=== PATIENT | male | born 1965 | race Caucasian/White ===

== ENCOUNTER 2018-08-22 20:07 | Observation (INO) | payer MEDICAID ==
[2018-08-22 20:09] VITALS: BMI 27.4
[2018-08-22 20:30] LABS: BASO # 0.05 K/mm3 (0.0-2.0); BASO % 1.1 % (0.0-3.0); EOS % 0.7 % (1.5-5.0); GRAN # 2.35 (1.4-6.5); GRAN % 52.7 % (50.0-68.0); HEMOGLOBIN 13.6 g/dL (14.0-18.0); LYMPH # 1.8 (1.2-3.4); LYMPH % 39.9 % (22.0-35.0); MEAN CORPUSCULAR HEMOGLOBIN 27.5 pg (25.0-35.0); MEAN CORPUSCULAR HGB CONC 33.6 g/dl (31.0-37.0); MEAN PLATELET VOLUME 9.2 fl (7.0-11.0); MONO # 0.3 (0.1-0.6); MONO % 5.6 % (1.0-6.0); RBC 4.94 10^6/uL (3.5-6.1); RED CELL DISTRIBUTION WIDTH 14.3 % (11.5-14.5); WHITE BLOOD COUNT 4.5 10^3/uL (4.5-11.0)
[2018-08-22 20:39] LABS: ALB/GLOB RATIO 1.4 (1.1-1.8); ALBUMIN 4.7 g/dL (3.0-4.8); ALT/SGPT 30 U/L (7-56); AST/SGOT 23 U/L (17-59); BLOOD UREA NITROGEN 13 mg/dL (7-21); CALCIUM 9.9 mg/dL (8.4-10.5); GFR NON-AFRICAN AMERICAN > 60; INR 1.07; PARTIAL THROMBOPLASTIN TIME 29.9 Seconds (25.1-36.5); PROTHROMBIN TIME 12.2 SECONDS (9.4-12.5)
[2018-08-22 20:40] LABS: D DIMER < 200 ng/mlDDU (0-243)
[2018-08-22 20:50] LABS: TROPONIN I < 0.01 ng/mL
--- NOTE | 2018-08-22 21:45 | ED PDOC ---
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 Patient states he has been experiencing chest pain with associated shortn ess of breath. Patient notes he recently had 2 left leg stents placed. Patient denies any fever, chills, nausea, vomiting, neck pain, headache, dizziness, or any other complaints. Symptom Onset: Gradual Symptom Course: Unchanged Activities at Onset: Light Context: Home Past Medical History - Provider Review Nursing Documentation Reviewed: Yes - Pulmonary Hx Respiratory Disorders: No - Neurological Hx Neurological Disorder: No - HEENT Hx HEENT Disorder: No - Renal Hx Renal Disorder: No - Endocrine/Metabolic Hx Endocrine Disorders: No - Hematological/Oncological Other/Comment: May Thurner syndrome stents placed two weeks ago - Integumentary Hx Dermatological Disorder: No - Musculoskeletal/Rheumatological Hx Musculoskeletal Disorders: No - Gastrointestinal Hx Gastrointestinal Disorders: No - Genitourinary/Gynecological Hx Genitourinary Disorders: No - Psychiatric Hx Psychophysiologic Disorder: No Hx Substance Use: No - Surgical History Other/Comment: stents two weeks ago Family/Social History - Physician Review Nursing Documentation Reviewed: Yes Family/Social History: Unknown Family HX Smoking Status: Never Smoked Hx Alcohol Use: No Hx Substance Use: No Allergies/Home Meds Allergies/Adverse Reactions: Allergies Iodinated Contrast- Oral and IV Dye Allergy (Verified 08/22/18 22:09) ANAPHYLAXIS Penicillins Allergy (Verified 08/22/18 20:09) RASH Home Medications: Home Meds Medication Instructions Recorded Confirmed Apixaban [Eliquis] 5 mg PO BID 08/22/18 08/23/18 Review of Systems - Physician Review All systems were reviewed & negative as marked: Yes - Review of Systems Constitutional: Normal. absent: Fevers Eyes: Normal ENT: Normal Respiratory: SOB. absent: Cough Cardiovascular: Chest Pain Gastrointestinal: Normal. absent: Abdominal Pain, Diarrhea, Nausea, Vomiting Genitourinary Male: Normal. absent: Dysuria, Frequency, Hematuria, Urinary Output Changes Musculoskeletal: Normal. absent: Back Pain, Neck Pain Skin: Normal. absent: Rash Neurological: Normal. absent: Headache, Dizziness Endocrine: Normal Hemo/Lymphatic: Normal Psychiatric: Normal Physical Exam Vital Signs Reviewed: Yes Vital Signs Temp Pulse Resp BP Pulse Ox 08/22/18 20:10 98.5 F 89 20 137/89 100 Temperature: Afebrile Blood Pressure: Normal Pulse: Regular Respiratory Rate: Normal Appearance: Positive for: Well-Appearing, Non-Toxic, Comfortable Pain Distress: None Mental Status: Positive for: Alert and Oriented X 3 - Systems Exam Head: Present: Atraumatic, Normocephalic Pupils: Present: PERRL Extroacular Muscles: Present: EOMI Conjunctiva: Present: Normal Mouth: Present: Moist Mucous Membranes Neck: Present: Normal Range of Motion. No: Meningeal Signs, MIDLINE TENDERNESS, Paraspinal Tenderness Respiratory/Chest: Present: Clear to Auscultation, Good Air Exchange. No: Respiratory Distress, Accessory Muscle Use Cardiovascular: Present: Regular Rate and Rhythm, Normal S1, S2. No: Murmurs Abdomen: No: Tenderness, Distention, Peritoneal Signs Back: Present: Normal Inspection Upper Extremity: Present: Normal Inspection. No: Cyanosis, Edema Lower Extremity: Present: Normal Inspection. No: Edema Neurological: Present: GCS=15, CN II-XII Intact, Speech Normal Skin: Present: Warm, Dry, Normal Color. No: Rashes Psychiatric: Present: Alert, Oriented x 3, Normal Insight, Normal Concentration Medical Decision Making ED Course and Treatment: 08/22/18 20:20 Impression: 53 year old male complaining of chest pain and shortness of breath, pt recently had 2 stents placed in the left leg. Plan: -- EKG -- Chest X-ray -- Labs, cardiac enzymes, D-dimer -- UA -- Reassess and disposition Progress Notes: Reviewed EKG, NSR at [address]-segment elevations or depressions, no T-wave inversions, normal intervals. 08/22/18 20:55 Chest X-ray reviewed, shows no acute processes. 08/22/18 21:30 Case discussed with certified medical aide nutrition club ambassador and house physician, who agree with plan. Pt will go to remote telemetry observation for chest pain under the hospitalist service. - Lab Interpretations Lab Results: 08/22/18 20:14 08/22/18 20:14 Lab Results 08/22/18 20:14: Sodium 142, Potassium 4.4, Chloride 104, Carbon Dioxide 26, Anion Gap 16, BUN 13, Creatinine 1.0, Est GFR ( Amer) > 60, Est GFR (Non- Af Amer) > 60, Random Glucose 123 H, Calcium 9.9, Magnesium 2.1, Total Bilirubin 0.8, AST 23, ALT 30, Alkaline Phosphatase 52, Lactate Dehydrogenase 579, Total Creatine Kinase 115, Troponin I < 0.01, Total Protein 8.0, Albumin 4.7, Globulin 3.3, Albumin/Globulin Ratio 1.4 08/22/18 20:14: PT 12.2, INR 1.07, APTT 29.9, D-Dimer, Quantitative < 200 08/22/18 20:14: WBC 4.5, RBC 4.94, Hgb 13.6 L, Hct 40.5 L, MCV 82.0, MCH 27.5, M CHC 33.6, RDW 14.3, Plt Count 288, MPV 9.2, Gran % 52.7, Lymph % (Auto) 39.9 H, [place] % (Auto) 5.6, Eos % (Auto) 0.7 L, Baso % (Auto) 1.1, Gran # 2.35, Lymph # (Auto) 1.8, [place] # (Auto) 0.3, Eos # (Auto) 0.0, Baso # (Auto) 0.05 I have reviewed the lab results: Yes - RAD Interpretation Radiology Orders: 08/22/18 20:21 CHEST PORTABLE [RAD] Stat Stencil Machine Operator: ED Physician - EKG Interpretation Interpreted by ED Physician: Yes Type: 12 lead EKG - Scribe Statement The provider has reviewed the documentation as recorded by the Yue Early Provider Scribe Attestation: All medical record entries made by the Yue were at my direction and personally dictated by me. I have reviewed the chart and agree that the record accurately reflects my personal performance of the history, physical exam, medical decision making, and the department course for this patient. I have also personally directed, reviewed, and agree with the discharge instructions and disposition. Disposition/Present on Arrival - Present on Arrival Any Indicators Present on Arrival: No History of DVT/PE: Yes History of Uncontrolled Diabetes: No Urinary Catheter: No History of Decub. Ulcer: No History Surgical Site Infection Following: None - Disposition Have Diagnosis and Disposition been Completed?: Yes Diagnosis: Chest pain Disposition: HOSPITALIZED Disposition Time: 22:00 Condition: GOOD
--- NOTE | 2018-08-22 22:35 | CP.PCM.HP ---
<Sourav Gaitan - Last Filed: 08/22/18 22:46> History of Present Illness - History of Present Illness History of Present Illness: Sourav Gaitan DO, PGY-1 Hospitalist Admission History and Physical for Dr. Albert CC: chest pain, SOB HPI: Mr. Miller is a 53 year old Occitan speaking male (history obtained/verified by Dr. 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 He describes the pain as a dull, aching type pain that is on the left side of his chest. He also has a numbness/tingling type sensation radiating down his L arm. Although he has a hx of prior DVT, he states he has never had an episode of chest pain like this in the past. He endorses BUTLER and some intermittent chills since the onset of the chest pain at 1900 but denies palpitations, diaphoresis, abdominal pain/nausea/vomiting, fever/chills, orthopnea, or PND. PMD: [place] Past Medical Hx: b/l DVT (L > R), PVD (s/p 6 stents in LE b/l), May-Thurner syndrome Past Surgical Hx: LE stents, R sided hernia repair Allergies: IV contrast, PCN Home medications: Eliquis 5 mg BID Family Hx: mother had DM2 and HTN, father had hx of orthostatic hypotension Social Hx: denies current or prior tobacco, alcohol, and drug use Pharmacy: [facility] Present on Admission - Present on Admission Any Indicators Present on Admission: Yes History of DVT/PE: Yes History of Uncontrolled Diabetes: No Urinary Catheter: No Decubitus Ulcer Present: No Review of Systems - Constitutional Constitutional: absent: Chills, Fever - EENT Eyes: absent: Blurred Vision Ears: absent: Disequilibrium, Dizziness - Cardiovascular Cardiovascular: Chest Pain, Dyspnea. absent: Diaphoresis, Irregular Heart Rhythm, Orthopnea, Palpitations, Paroxysmal Nocturnal Dyspnea, Syncope - Respiratory Respiratory: Dyspnea. absent: Cough - Gastrointestinal Gastrointestinal: absent: Abdominal Pain, Constipation, Diarrhea, Nausea, Vomiting - Genitourinary Genitourinary: absent: Change in Urinary Stream, Difficulty Urinating Past Patient History - Past Social History Smoking Status: Never Smoked - PULMONARY Hx Respiratory Disorders: No - NEUROLOGICAL Hx Neurological Disorder: No - HEENT Hx HEENT Problems: No - RENAL Hx Chronic Kidney Disease: No - ENDOCRINE/METABOLIC Hx Endocrine Disorders: No - HEMATOLOGICAL/ONCOLOGICAL Other/Comment: May Thurner syndrome stents placed two weeks ago - INTEGUMENTARY Hx Dermatological Problems: No - MUSCULOSKELETAL/RHEUMATOLOGICAL Hx Musculoskeletal Disorders: No - GASTROINTESTINAL Hx Gastrointestinal Disorders: No - GENITOURINARY/GYNECOLOGICAL Hx Genitourinary Disorders: No - PSYCHIATRIC Hx Psychophysiologic Disorder: No Hx Substance Use: No - SURGICAL HISTORY Other/Comment: stents two weeks ago Meds Allergies/Adverse Reactions: Allergies Allergy/AdvReac Type Severity Reaction Status Date / Time Iodinated Contrast- Oral and Allergy ANAPHYLAXIS Verified 08/22/18 22:09 IV Dye Penicillins Allergy RASH Verified 08/22/18 20:09 Physical Exam - Constitutional Appears: Non-toxic, No Acute Distress - Head Exam Head Exam: ATRAUMATIC, NORMOCEPHALIC - Eye Exam Eye Exam: EOMI, Normal appearance, PERRL - ENT Exam ENT Exam: Mucous Membranes Moist - Neck Exam Neck exam: Positive for: Full Rom, Normal Inspection - Respiratory Exam Respiratory Exam: Clear to Auscultation Bilateral, NORMAL BREATHING PATTERN. absent: Rales, Rhonchi, Wheezes - Cardiovascular Exam Cardiovascular Exam: REGULAR RHYTHM, RRR, +S1, +S2. absent: Diastolic murmur, Gallop, Rubs, Systolic Murmur - GI/Abdominal Exam GI & Abdominal Exam: Normal Bowel Sounds, Soft. absent: Guarding, Tenderness - Extremities Exam Extremities exam: Positive for: normal capillary refill, pedal pulses present. Negative for: calf tenderness, pedal edema Additional comments: patient wearing compression stockings - Back Exam Back exam: FULL ROM, NORMAL INSPECTION - Neurological Exam Neurological exam: Alert, Oriented x3 - Psychiatric Exam Psychiatric exam: Normal Affect, Normal Mood - Skin Skin Exam: Dry, Intact, Warm Results - Vital Signs Recent Vital Signs: Last Vital Signs Temp 98.5 F 08/22/18 20:10 Pulse 89 08/22/18 20:10 Resp 20 08/22/18 20:10 BP 137/89 08/22/18 20:10 Pulse Ox 100 08/22/18 20:10 - Labs Result Diagrams: 08/22/18 20:14 08/22/18 20:14 Labs: Laboratory Results - last 24 hr 08/22/18 08/22/18 08/22/18 20:14 20:14 20:14 WBC 4.5 RBC 4.94 Hgb 13.6 L Hct 40.5 L MCV 82.0 MCH 27.5 MCHC 33.6 RDW 14.3 Plt Count 288 MPV 9.2 Gran % 52.7 Lymph % (Auto) 39.9 H [place] % (Auto) 5.6 Eos % (Auto) 0.7 L Baso % (Auto) 1.1 Gran # 2.35 Lymph # (Auto) 1.8 [place] # (Auto) 0.3 Eos # (Auto) 0.0 Baso # (Auto) 0.05 PT 12.2 INR 1.07 APTT 29.9 D-Dimer, Quantitative < 200 Sodium 142 Potassium 4.4 Chloride 104 Carbon Dioxide 26 Anion Gap 16 BUN 13 Creatinine 1.0 Est GFR ( Amer) > 60 Est GFR (Non-Af Amer) > 60 Random Glucose 123 H Calcium 9.9 Magnesium 2.1 Total Bilirubin 0.8 AST 23 ALT 30 Alkaline Phosphatase 52 Lactate Dehydrogenase 579 Total Creatine Kinase 115 Troponin I < 0.01 Total Protein 8.0 Albumin 4.7 Globulin 3.3 Albumin/Globulin Ratio 1.4 Assessment & Plan - Assessment and Plan (Free Text) Assessment: 53 yo M with PMH of 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 Plan: 1. Chest pain/SOB May be 2/2 costochondritis vs GERD/heartburn Low suspicion for cardiac etiology or PE (D-dimer negative) Trend troponin q6h x 2 Repeat EKG in AM Will start on ASA 81 and lipitor 40 in AM F/u lipid panel, A1c, TSH in AM Topical NG PRN for any additional CP 2. Hx b/l DVT/PVD Likely 2/2 May-Thurner syndrome which patient states he has been diagnosed with Patient was wearing compression stockings on exam Advised patient that compression stockings/SCDs are typically contraindicated with active DVT Patient stated his data capture specialist told him he could wear them and states he wants to continue wearing them Continue anti-coagulation with home eliquis dose 3. BUTLER Most likely tension BUTLER Tylenol PRN Consider CT head if not improving 4. Hx HLD Patient admits to a history of high cholesterol but states he does not take any medicines for it Will start on lipitor 40 in AM F/u lipid panel results in AM DVT/GI PPX: home eliquis, protonix Full Code HHD Monitor on telemetry Case and plan reviewed and discussed with my attending Dr. Bety Gaitan, DO IM Resident PGY-1 <Zoila Albert - Last Filed: 08/23/18 02:49> Results - Vital Signs Recent Vital Signs: Last Vital Signs Temp 98.0 F 08/22/18 23:36 Pulse 77 08/22/18 23:37 Resp 20 08/22/18 23:36 BP 124/74 08/22/18 23:36 Pulse Ox 97 08/22/18 23:36 - Labs Result Diagrams: 08/22/18 20:14 08/22/18 20:14 Labs: Laboratory Results - last 24 hr 08/22/18 08/22/18 08/22/18 20:14 20:14 20:14 WBC 4.5 RBC 4.94 Hgb 13.6 L Hct 40.5 L MCV 82.0 MCH 27.5 MCHC 33.6 RDW 14.3 Plt Count 288 MPV 9.2 Gran % 52.7 Lymph % (Auto) 39.9 [place] % (Auto) 5.6 Eos % (Auto) 0.7 L Baso % (Auto) 1.1 Gran # 2.35 Lymph # (Auto) 1.8 [place] # (Auto) 0.3 Eos # (Auto) 0.0 Baso # (Auto) 0.05 PT 12.2 INR 1.07 APTT 29.9 D-Dimer, Quantitative < 200 Sodium 142 Potassium 4.4 Chloride 104 Carbon Dioxide 26 Anion Gap 16 BUN 13 Creatinine 1.0 Est GFR ( Amer) > 60 Est GFR (Non-Af Amer) > 60 Random Glucose 123 H Calcium 9.9 Magnesium 2.1 Total Bilirubin 0.8 AST 23 ALT 30 Alkaline Phosphatase 52 Lactate Dehydrogenase 579 Total Creatine Kinase 115 Troponin I < 0.01 Total Protein 8.0 Albumin 4.7 Globulin 3.3 Albumin/Globulin Ratio 1.4 Attending/Attestation - Attestation I have personally seen and examined this patient.: Yes I have fully participated in the care of the patient.: Yes I have reviewed all pertinent clinical information: Yes Notes (Text): 08/23/18 02:48 Chnge topical NTG to SL NTG. Pt. had recent echo at [facility]. Copied and put in chart.
[2018-08-22] MEDS ORDERED: Nitroglycerin 2% Ointment Foilpak UD TOP PRN (22:42)
[2018-08-22 23:44] VITALS: RESP 20
[2018-08-22] MEDS ORDERED: Pneumococcal 23-Valent Vaccine IM ONE (23:44)
[2018-08-22] MEDS ORDERED: Influenza Vaccine 60 mcg/0.5 mL SYR (4YR UP) IM ONE (23:44)
[2018-08-23] MEDS ORDERED: Pantoprazole 40 mg EC Tab PO SCH (06:00)
[2018-08-23 06:48] LABS: URINE BILIRUBIN NEGATIVE (NEGATIVE); URINE BLOOD NEGATIVE (NEGATIVE); URINE GLUCOSE (UA) NEGATIVE (NEGATIVE); URINE LEUKOCYTE ESTERASE NEGATIVE Leu/uL (NEGATIVE); URINE PROTEIN NEGATIVE mg/dL (<30 mg/dL); URINE UROBILINOGEN 0.2 E.U./dL (<1 E.U./dL)
[2018-08-23 06:53] VITALS: BP 109/68; TEMP 97.7; O2SAT 99
[2018-08-23 06:54] LABS: URINE APPEARANCE CLEAR (CLEAR); URINE COLOR YELLOW (YELLOW)
[2018-08-23 07:04] LABS: BASO # 0.03 K/mm3 (0.0-2.0); BASO % 0.7 % (0.0-3.0); EOS # 0.1 (0.0-0.7); EOS % 2.5 % (1.5-5.0); GRAN # 2.18 (1.4-6.5); GRAN % 49.6 % (50.0-68.0); HEMOGLOBIN 12.7 g/dL (14.0-18.0); LYMPH # 1.7 (1.2-3.4); MEAN CELL VOLUME 82.3 fl (80.0-105.0); MEAN CORPUSCULAR HEMOGLOBIN 26.8 pg (25.0-35.0); MEAN CORPUSCULAR HGB CONC 32.6 g/dl (31.0-37.0); MEAN PLATELET VOLUME 9.7 fl (7.0-11.0); MONO # 0.4 (0.1-0.6); MONO % 8.2 % (1.0-6.0); RBC 4.74 10^6/uL (3.5-6.1); RED CELL DISTRIBUTION WIDTH 14.4 % (11.5-14.5); WHITE BLOOD COUNT 4.4 10^3/uL (4.5-11.0)
[2018-08-23 07:13] LABS: ALB/GLOB RATIO 1.3 (1.1-1.8); ALBUMIN 3.9 g/dL (3.0-4.8); ALT/SGPT 35 U/L (7-56); AST/SGOT 25 U/L (17-59); BLOOD UREA NITROGEN 14 mg/dL (7-21); CALCIUM 9.3 mg/dL (8.4-10.5); GFR NON-AFRICAN AMERICAN > 60; HDL CHOLESTEROL 35 mg/dL (29-60)
[2018-08-23 07:23] LABS: LDL CHOLESTEROL 118 mg/dL (0-129)
--- NOTE | 2018-08-23 09:18 | RAD ---
Date of service: 08/22/2018 HISTORY: cp COMPARISON: No prior. FINDINGS: LUNGS: No active pulmonary disease. PLEURA: No significant pleural effusion identified, no pneumothorax apparent. CARDIOVASCULAR: No aortic atherosclerotic calcification present. Normal cardiac size. No pulmonary vascular congestion. OSSEOUS STRUCTURES: No significant abnormalities. VISUALIZED UPPER ABDOMEN: Normal. OTHER FINDINGS: None. IMPRESSION: No active disease.
--- NOTE | 2018-08-23 13:44 | CARD ---
APPROVED REPORT Date of service: 08/23/2018 EKG Measurement Heart [id number] <Conclusion> Normal sinus rhythm Normal ECG
[2018-08-23 14:20] VITALS: PULSE 93
--- NOTE | 2018-08-23 15:13 | CARD ---
APPROVED REPORT Date of service: 08/22/2018 EKG Measurement Heart [id number] <Conclusion> Normal sinus rhythm Normal ECG
--- NOTE | 2018-08-23 15:53 | CP.PCM.DIS ---
<Humble Gonzalez - Last Filed: 08/23/18 15:30> Provider - Provider Date of Admission: 08/22/18 21:30 Attending physician: Tsering Conrad DO Primary care physician: Mary Jane Samson MD Time Spent in preparation of Discharge (in minutes): 45 Diagnosis - Discharge Diagnosis (1) Chest pain Status: Acute Hospital Course - Lab Results Lab Results: Most Recent Lab Values WBC 4.4 10^3/uL (4.5-11.0) L 08/23/18 06:15 RBC 4.74 10^6/uL (3.5-6.1) 08/23/18 06:15 Hgb 12.7 g/dL (14.0-18.0) L 08/23/18 06:15 Hct 39.0 % (42.0-52.0) L 08/23/18 06:15 MCV 82.3 fl (80.0-105.0) 08/23/18 06:15 MCH 26.8 pg (25.0-35.0) 08/23/18 06:15 MCHC 32.6 g/dl (31.0-37.0) 08/23/18 06:15 RDW 14.4 % (11.5-14.5) 08/23/18 06:15 Plt Count 244 10^3/uL (120.0-450.0) 08/23/18 06:15 MPV 9.7 fl (7.0-11.0) 08/23/18 06:15 Gran % 49.6 % (50.0-68.0) L 08/23/18 06:15 Lymph % (Auto) 39.0 % (22.0-35.0) H 08/23/18 06:15 [place] % (Auto) 8.2 % (1.0-6.0) H 08/23/18 06:15 Eos % (Auto) 2.5 % (1.5-5.0) 08/23/18 06:15 Baso % (Auto) 0.7 % (0.0-3.0) 08/23/18 06:15 Gran # 2.18 (1.4-6.5) 08/23/18 06:15 Lymph # (Auto) 1.7 (1.2-3.4) 08/23/18 06:15 [place] # (Auto) 0.4 (0.1-0.6) 08/23/18 06:15 Eos # (Auto) 0.1 (0.0-0.7) 08/23/18 06:15 Baso # (Auto) 0.03 K/mm3 (0.0-2.0) 08/23/18 06:15 PT 12.2 SECONDS (9.4-12.5) 08/22/18 20:14 INR 1.07 08/22/18 20:14 APTT 29.9 Seconds (25.1-36.5) 08/22/18 20:14 D-Dimer, Quantitative < 200 ng/mlDDU (0-243) 08/22/18 20:14 Sodium 141 mmol/L (132-148) 08/23/18 06:15 Potassium 4.2 mmol/L (3.6-5.0) 08/23/18 06:15 Chloride 106 mmol/L (98-107) 08/23/18 06:15 Carbon Dioxide 29 mmol/L (21-33) 08/23/18 06:15 Anion Gap 10 (10-20) 08/23/18 06:15 BUN 14 mg/dL (7-21) 08/23/18 06:15 Creatinine 1.1 mg/dl (0.8-1.5) 08/23/18 06:15 Est GFR ( Amer) > 60 08/23/18 06:15 Est GFR (Non-Af Amer) > 60 08/23/18 06:15 Random Glucose 96 mg/dL (70-110) 08/23/18 06:15 Hemoglobin A1c 5.6 % (4.2-6.5) 08/23/18 06:15 Calcium 9.3 mg/dL (8.4-10.5) 08/23/18 06:15 Phosphorus 3.1 mg/dL (2.5-4.5) 08/23/18 06:15 Magnesium 2.2 mg/dL (1.7-2.2) 08/23/18 06:15 Total Bilirubin 0.6 mg/dL (0.2-1.3) 08/23/18 06:15 AST 25 U/L (17-59) 08/23/18 06:15 ALT 35 U/L (7-56) 08/23/18 06:15 Alkaline Phosphatase 51 U/L (38-126) 08/23/18 06:15 Lactate Dehydrogenase 579 U/L (333-699) 08/22/18 20:14 Total Creatine Kinase 115 U/L (35-230) 08/22/18 20:14 Troponin I < 0.01 ng/mL 08/23/18 08:00 Total Protein 6.9 g/dL (5.8-8.3) 08/23/18 06:15 Albumin 3.9 g/dL (3.0-4.8) 08/23/18 06:15 Globulin 3.0 gm/dL 08/23/18 06:15 Albumin/Globulin Ratio 1.3 (1.1-1.8) 08/23/18 06:15 Triglycerides 153 mg/dL (35-160) 08/23/18 06:15 Cholesterol 193 mg/dL (130-200) 08/23/18 06:15 LDL Cholesterol Direct 118 mg/dL (0-129) 08/23/18 06:15 HDL Cholesterol 35 mg/dL (29-60) 08/23/18 06:15 TSH 3rd Generation 1.94 mIU/mL (0.46-4.68) 08/23/18 06:15 Urine Color Yellow (YELLOW) 08/23/18 06:38 Urine Appearance Clear (CLEAR) 08/23/18 06:38 Urine pH 6.0 (4.7-8.0) 08/23/18 06:38 Ur Specific [place] >= 1.030 (1.005-1.035) 08/23/18 06:38 Urine Protein Negative mg/dL (<30 mg/dL) 08/23/18 06:38 Urine Glucose (UA) Negative mg/dL (NEGATIVE) 08/23/18 06:38 Urine Ketones Negative mg/dL (NEGATIVE) 08/23/18 06:38 Urine Blood Negative (NEGATIVE) 08/23/18 06:38 Urine Nitrate Negative (NEGATIVE) 08/23/18 06:38 Urine Bilirubin Negative (NEGATIVE) 08/23/18 06:38 Urine Urobilinogen 0.2 E.U./dL (<1 E.U./dL) 08/23/18 06:38 Ur Leukocyte Esterase Negative Yoko/uL (NEGATIVE) 08/23/18 06:38 - Hospital Course Hospital Course: Upon Admission: Mr. Miller is a 53 year old Hebrew speaking male (history obtained/verified by Dr. 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 He describes the pain as a dull, aching type pain that is on the left side of his chest. He also has a numbness/tingling type sensation radiating down his L arm. Although he has a hx of prior DVT, he states he has never had an episode of chest pain like this in the past. He endorses BUTLER and some intermittent chills since the onset of the chest pain at 1900 but denies palpitations, diaphoresis, abdominal pain/nausea/vomiting, fever/chills, orthopnea, or PND. Hospital Course: Pt was being worked up for chest pain r/o ACS. Pts D-dimer levels were low and pt is compliant with his home eliquis dosage. Troponin were trended x3 and was <.01. Pt was started on ASA 81mg and lipitor 40mg. Pt states that his chest pain resolved in AM, as trops continued to trend down. In ED EKG showed NSR @ [address]-T wave changes and CXR showed no acute process. Repeat EKG today showed NSR @ [address]-T wave changes. Pt states that they are completely asymptomatic at this time. They no longer have any numbness or tingling pain in the L arm and had no acute overnight events. Pts labs showed an LDL level of 118, HDL of 35, cholesterol level of 193 and TG of 153.Pt was seen and cleared by cardiology and scheduled for an out patient stress test. The pt was interested in going home after obtaining cardiac clearance. The discharge plan was discussed and explained to the pt who stated that he understood the d/c plan. All of the pts questions and concerns were addressed before discharge and the pt was in agreement with the plan for discharge. Upon d/c: Pt was specifically instructed to: - Please follow up with your Primary Care Doctor Dr. Samson within 3-5 days of discharge. - You were found to have high cholesterol, please start eating a diet that is rich in fruits and vegetables and begin exercising to lower your levels. - We have also started you on lipitor 10mg to help lower your cholesterol. Please follow up with your primary care doctor regarding rechecking your cholesterol levels and reassessing need for medication. - Please continue taking your home medication Eliquis 5 mg 1 tablet, two times a day. - You are scheduled for an outpatient stress test, on Thursday, September 06. Dr Terrell's office (Cardiology) will call you 2 days before the stress test to give you the exact time of the appointment. You can reach them at [phone]. - Follow up with your Cardiology doctor at [facility] in 3-5 days of discharge. - If you begin to have any new or worsening symptoms, please return to the Emergency Department. Pt was given oppurtunity to ask any questions further regarding the discharge instructions, or if there was any difficult in following up with the doctors mentioned above. Pt states understanding and agreement with the plan with no forseeable conflicts preventing follow up. Discharge Exam - Head Exam Head Exam: ATRAUMATIC, NORMAL INSPECTION, NORMOCEPHALIC - Eye Exam Eye Exam: EOMI, Normal appearance, PERRL Pupil Exam: NORMAL ACCOMODATION - Respiratory Exam Respiratory Exam: NORMAL BREATHING PATTERN, UNREMARKABLE. absent: Accessory Muscle Use, Decreased Breath Sounds, Rales, Rhonchi, Wheezes, Respiratory Distress, Stridor - Cardiovascular Exam Cardiovascular Exam: RRR, +S1, +S2. absent: Gallop, Rubs - GI/Abdominal Exam GI & Abdominal Exam: Normal Bowel Sounds, Soft, Unremarkable. absent: Firm, Guarding, Tenderness - Extremities Exam Extremities exam: normal capillary refill, normal inspection - Back Exam Back exam: NORMAL INSPECTION. absent: CVA tenderness (L), CVA tenderness (R) - Neurological Exam Neurological exam: Alert, Oriented x3 - Psychiatric Exam Psychiatric exam: Normal Affect, Normal Mood - Skin Skin Exam: Cyanosis, Dry, Intact, Normal Color Discharge Plan - Discharge Medications Prescriptions: Aspirin [Aspirin Chewable] 81 mg PO DAILY 30 Days #30 ctb RX: Atorvastatin [Lipitor] 10 mg PO DAILY 30 Days #30 tab - Follow Up Plan Condition: GOOD Disposition: HOME/ ROUTINE Instructions: Chest Pain (DC) Additional Instructions: - Please follow up with your Primary Care Doctor Dr. Samson within 3-5 days of discharge. - You were found to have high cholesterol, please start eating a diet that is rich in fruits and vegetables and begin exercising to lower your levels. - We have also started you on lipitor 10mg to help lower your cholesterol. Please follow up with your primary care doctor regarding rechecking your cholesterol levels and reassessing need for medication. - Please continue taking your home medication Eliquis 5 mg 1 tablet, two times a day. - You are scheduled for an outpatient stress test, on Thursday, September 06. Dr Terrell's office (Cardiology) will call you 2 days before the stress test to give you the exact time of the appointment. You can reach them at [phone]. - Follow up with your Cardiology doctor at [facility] in 3-5 days of discharge. - If you begin to have any new or worsening symptoms, please return to the Emergency Department Referrals: Mary Jane Samson MD [Primary Care Provider] - Jose Terrell MD [Staff Provider] - <Garry Martin - Last Filed: 08/23/18 16:57> Provider - Provider Date of Admission: 08/22/18 21:30 Attending physician: Tsering Conrad DO Primary care physician: Mary Jane Samson MD Time Spent in preparation of Discharge (in minutes): 20 Hospital Course - Lab Results Lab Results: Most Recent Lab Values WBC 4.4 10^3/uL (4.5-11.0) L 08/23/18 06:15 RBC 4.74 10^6/uL (3.5-6.1) 08/23/18 06:15 Hgb 12.7 g/dL (14.0-18.0) L 08/23/18 06:15 Hct 39.0 % (42.0-52.0) L 08/23/18 06:15 MCV 82.3 fl (80.0-105.0) 08/23/18 06:15 MCH 26.8 pg (25.0-35.0) 08/23/18 06:15 MCHC 32.6 g/dl (31.0-37.0) 08/23/18 06:15 RDW 14.4 % (11.5-14.5) 08/23/18 06:15 Plt Count 244 10^3/uL (120.0-450.0) 08/23/18 06:15 MPV 9.7 fl (7.0-11.0) 08/23/18 06:15 Gran % 49.6 % (50.0-68.0) L 08/23/18 06:15 Lymph % (Auto) 39.0 % (22.0-35.0) H 08/23/18 06:15 [place] % (Auto) 8.2 % (1.0-6.0) H 08/23/18 06:15 Eos % (Auto) 2.5 % (1.5-5.0) 08/23/18 06:15 Baso % (Auto) 0.7 % (0.0-3.0) 08/23/18 06:15 Gran # 2.18 (1.4-6.5) 08/23/18 06:15 Lymph # (Auto) 1.7 (1.2-3.4) 08/23/18 06:15 [place] # (Auto) 0.4 (0.1-0.6) 08/23/18 06:15 Eos # (Auto) 0.1 (0.0-0.7) 08/23/18 06:15 Baso # (Auto) 0.03 K/mm3 (0.0-2.0) 08/23/18 06:15 PT 12.2 SECONDS (9.4-12.5) 08/22/18 20:14 INR 1.07 08/22/18 20:14 APTT 29.9 Seconds (25.1-36.5) 08/22/18 20:14 D-Dimer, Quantitative < 200 ng/mlDDU (0-243) 08/22/18 20:14 Sodium 141 mmol/L (132-148) 08/23/18 06:15 Potassium 4.2 mmol/L (3.6-5.0) 08/23/18 06:15 Chloride 106 mmol/L (98-107) 08/23/18 06:15 Carbon Dioxide 29 mmol/L (21-33) 08/23/18 06:15 Anion Gap 10 (10-20) 08/23/18 06:15 BUN 14 mg/dL (7-21) 08/23/18 06:15 Creatinine 1.1 mg/dl (0.8-1.5) 08/23/18 06:15 Est GFR ( Amer) > 60 08/23/18 06:15 Est GFR (Non-Af Amer) > 60 08/23/18 06:15 Random Glucose 96 mg/dL (70-110) 08/23/18 06:15 Hemoglobin A1c 5.6 % (4.2-6.5) 08/23/18 06:15 Calcium 9.3 mg/dL (8.4-10.5) 08/23/18 06:15 Phosphorus 3.1 mg/dL (2.5-4.5) 08/23/18 06:15 Magnesium 2.2 mg/dL (1.7-2.2) 08/23/18 06:15 Total Bilirubin 0.6 mg/dL (0.2-1.3) 08/23/18 06:15 AST 25 U/L (17-59) 08/23/18 06:15 ALT 35 U/L (7-56) 08/23/18 06:15 Alkaline Phosphatase 51 U/L (38-126) 08/23/18 06:15 Lactate Dehydrogenase 579 U/L (333-699) 08/22/18 20:14 Total Creatine Kinase 115 U/L (35-230) 08/22/18 20:14 Troponin I < 0.01 ng/mL 08/23/18 08:00 Total Protein 6.9 g/dL (5.8-8.3) 08/23/18 06:15 Albumin 3.9 g/dL (3.0-4.8) 08/23/18 06:15 Globulin 3.0 gm/dL 08/23/18 06:15 Albumin/Globulin Ratio 1.3 (1.1-1.8) 08/23/18 06:15 Triglycerides 153 mg/dL (35-160) 08/23/18 06:15 Cholesterol 193 mg/dL (130-200) 08/23/18 06:15 LDL Cholesterol Direct 118 mg/dL (0-129) 08/23/18 06:15 HDL Cholesterol 35 mg/dL (29-60) 08/23/18 06:15 TSH 3rd Generation 1.94 mIU/mL (0.46-4.68) 08/23/18 06:15 Urine Color Yellow (YELLOW) 08/23/18 06:38 Urine Appearance Clear (CLEAR) 08/23/18 06:38 Urine pH 6.0 (4.7-8.0) 08/23/18 06:38 Ur Specific [place] >= 1.030 (1.005-1.035) 08/23/18 06:38 Urine Protein Negative mg/dL (<30 mg/dL) 08/23/18 06:38 Urine Glucose (UA) Negative mg/dL (NEGATIVE) 08/23/18 06:38 Urine Ketones Negative mg/dL (NEGATIVE) 08/23/18 06:38 Urine Blood Negative (NEGATIVE) 08/23/18 06:38 Urine Nitrate Negative (NEGATIVE) 08/23/18 06:38 Urine Bilirubin Negative (NEGATIVE) 08/23/18 06:38 Urine Urobilinogen 0.2 E.U./dL (<1 E.U./dL) 08/23/18 06:38 Ur Leukocyte Esterase Negative Yoko/uL (NEGATIVE) 08/23/18 06:38 Attending/Attestation - Attestation I have personally seen and examined this patient.: Yes I have fully participated in the care of the patient.: Yes I have reviewed all pertinent clinical information, including history, physical exam and plan: Yes Notes (Text): 53 y/o with PMH of May-Thurner syndrome was placed under observation for CP to r /o ACS. Pt had negative trop and EKGs. Cardio was consulted and recommended outpt stress test. Pt's chest pain resolved. On the day of D/C, labs and vitals were within acceptable limits. Pt was instructed to return to the ED should symptoms recur. 08/23/18 16:51
--- NOTE | 2018-08-23 22:52 | CON ---
DATE: 08/23/2018 CARDIOLOGY CONSULTATION HISTORY: The patient is a 53-year-old male who presents with an atypical chest discomfort. The patient has no previous cardiac history. The patient's past medical history includes stents that were placed in what presumably is the femoral arteries at [facility] recently. His current chest pain is not pressure-like. He has difficulty describing, but since has resolved. He has had two stress tests in the past by his doctors at [facility] that he reports have been negative. His cardiac risk factors include a history of peripheral vascular disease, hypercholesterolemia. No diabetes mellitus. SOCIAL HISTORY: The patient does not smoke. REVIEW OF SYSTEMS: Fourteen-point review of systems are reviewed in detail. He is currently on Eliquis for questionable reasons, but it can be deduced that it might be due to DVTs. PHYSICAL EXAMINATION: VITAL SIGNS: Blood pressure is 109/68, the heart rates in the 80s. NECK: Negative JVD. LUNGS: Without rales. HEART: S1, S2. EXTREMITIES: Without edema. EKG is within normal limits. LABORATORY DATA: Troponins are negative x3. Hemoglobin is 12.7. IMPRESSION: 1. Atypical chest pain. 2. No evidence for acute coronary artery syndrome. 3. History of presumed peripheral vascular disease, because he is status post stents in the blood vessels and lower extremities at [facility]. 4. Questionable deep vein thrombosis in the past, treated with Eliquis. 5. History of hypertension. Given these findings, there is no evidence for acute coronary artery syndrome. The patient's symptoms have resolved. Given his high probability for coronary artery disease with a history of peripheral vascular disease, I have discussed with the patient and family about his need for an outpatient stress test. We will schedule that as an outpatient. From a cardiac perspective, we will discontinue his telemetry today. Jose Terrell MD
== END 2018-08-23 15:05 | disposition home or self-care (01) ==
LOC: ED 20:07 → ERH 21:30 → 3RSO 22:51
PROVIDERS: ADMIT Internal Medicine; ATTEND Hospitalist
DX: R07.89 Other chest pain (principal); E78.00 Pure hypercholesterolemia, unspecified; E78.5 Hyperlipidemia, unspecified; I10 Essential (primary) hypertension; I73.9 Peripheral vascular disease, unspecified; I87.1 Compression of vein; Z79.01 Long term (current) use of anticoagulants; Z82.49 Family history of ischemic heart disease and other diseases of the circulatory system; Z83.3 Family history of diabetes mellitus; Z86.718 Personal history of other venous thrombosis and embolism
CPT/HCPCS: 36415; 71045; 80053; 80061; 81003; 82550; 83036; 83615; 83735; 84100; 84443; 84484; 85025; 85378; 85610; 85730; 93005; 99285; G0378